=== PATIENT | female | born 1940 | race Two or more races ===

== ENCOUNTER 2025-04-09 03:16 | Inpatient (IN) | payer OTHER, SELFPAY ==
[2025-04-08] VITALS (27 sets, daily range): BP systolic 71–113; BP diastolic 47–57; BMI 22.1
[2025-04-08 19:25] LABS: Hematocrit 37.8 % (37.0-47.0); Hemoglobin 11.8 g/dL (12.0-16.0); Mean Corp Hgb Conc. 31.2 g/dL (33.0-37.0); Mean Corpuscular Volume 91.7 fL (81.0-99.0); Nucleated Red Blood Cells % 0 %; Platelet Count 223 10^3/uL (130-400); Red Cell Dist. Width 12.8 % (11.5-14.5)
[2025-04-08 19:45] LABS: Blood Urea Nitrogen 46 mg/dl (7-17); Calcium 9.5 mg/dl (8.4-10.2); Carbon Dioxide 10 mmol/L (22-30); Chloride 99 mmol/L (98-107); Estimated Creatinine Clearance 20 ml/min; Glucose 155 mg/dl (70-99); Lipase 196 U/L (23-300); Sodium 133 mmol/L (135-145); eGFR 32.00
--- NOTE | 2025-04-08 19:45 | ED.GENMED ---
History of Present Illness
<HILARIA Goyal - Last Filed: 04/09/25 08:35>
General
Chief Complaint: Change in Mental Status
Source: patient
Time Seen by Provider: 04/08/25 18:49
Nursing documentation reviewed up to this point in time: agreed with
History of Present Illness
History of Present Illness:
Patient is an 84-year-old female with history of hypertension hyperlipidemia pacemaker diabetes brought from home for change in mental status. Son at bedside. Son reports patient lives with him and last week patient had an episode of
hallucinations. Son reports patient was stating that she saw her son and . Today they noticed patient was in her room a lot and had a lot of confusion and was too weak to walk today.
Son is translating. Patient was complaining of some abdominal discomfort. Patient had an episode of stool incontinence upon arrival noted by EMS. Presently patient is awake and alert and not confused at baseline as per son. Son reports no
history of dementia.
Phy Exam
<HILARIA Goyal - Last Filed: 04/09/25 08:35>
General Physical Exam
General Presentation: no apparent distress
General age: appears stated age
General Skin: warm and dry
General Habitus: elderly
General Hydration: appears well hydrated
Cardiovascular Exam
Cardiovascular Exam: regular rate/rhythm, no murmur and normal peripheral pulses
Pulmonary Exam
Pulmonary Exam: lungs clear and no respiratory distress
Gastrointestinal Exam
Gastrointestinal Exam: soft and other (tender lower abdominal region )
Neurological Exam
Neurological Exam: alert and oriented x3
Musculoskeletal Exam
Musculoskeletal Exam: full ROM
Skin Exam
Skin Exam: normal color and warm/dry
Psychiatric Exam
Psychiatric Exam: normal mood/affect
Course
<HILARIA Goyal - Last Filed: 04/09/25 08:35>
Orders/Labs/Results
Orders:
Orders
04/08/25 18:50
Electrocardiogram (*1) Urgent
Reason for Study: Other
Other Reason for Exam: Possible Sepsis
04/08/25 18:51
EKG- Treatment ONCE
04/08/25 19:14
Basic Metabolic Panel Urgent
Complete Blood Count/With Diff Urgent
Lipase Urgent
04/08/25 19:44
Straight cath- Treatment ONCE
04/08/25 19:45
CT Head W/o Iv Contrast Urgent
Comment:
Reason For Exam: confusion
04/08/25 20:01
CMP [Comprehensive Metabolic Panel] Urgent
04/08/25 20:16
UA Reflex to Culture [Urinalysis Reflex To Culture] Urgent
Date Specimen was Collected: 04/08/25
Time Specimen was Collected: 20:15
Urine Microscopic Reflex Cult Urgent
Urine Culture Urgent
MORGAN Source: U
Specimen Description:
Date Specimen was Collected: 04/08/25
Time Specimen was Collected: 20:15
04/08/25 21:46
0.9% Sodium Chloride 1000 ml [Nss] 1,000 ml IV BOLUS
04/08/25 21:57
COVID-19 Antigen Urgent
Source: Nasal Swab
Influenza A+B Rapid Molecular Urgent
MORGAN Source: Nasal Swab
Specimen Description:
04/08/25 22:04
0.9% Sodium Chloride 500 ml [Nss] 500 ml IV BOLUS
04/08/25 22:05
CT Abd/pelvis W Iv Cont Urgent
Comment:
Reason For Exam: ABD PAIN, CONFUSION
04/08/25 22:21
Lactic Acid Q4H
Comment: CANCEL 2nd LACTIC ACID IF 1st LACTIC ACID IS LESS THAN 2
Troponin I Urgent
Blood Culture Q30M
MORGAN Source: Blood/Venous
Specimen Description:
04/08/25 23:24
Blood Culture Q30M
MORGAN Source: Blood/Venous
Specimen Description:
04/09/25 00:21
Piperacillin/Tazo 4.5 Gram [Zosyn] 4.5 gram in 100 ml IV NOW
Vancomycin [Vancocin] 1,500 mg 0.9% Sodium Chloride 500 ml [Nss] 500 ml IV NOW
04/09/25 01:00
Troponin I Urgent
04/09/25 01:11
CXR2 [CR Chest - 2 Views ] Urgent
Comment:
Reason For Exam: Sepsis
04/09/25 01:20
Electrocardiogram (*1) Urgent
Reason for Study: Chest Pain
EKG- Treatment ONCE
04/09/25 01:43
ABG [Arterial Blood Gas] Urgent
%Oxygen/Room Air: RA
B-Hydroxybutyrate Urgent
DDimer [D-Dimer] Urgent
04/09/25 02:46
Admit/Transfer Patient As Directed
Co-Sign Provider:
Level of Care: Inpatient admission
Assign to:: IMU- Intermediate Care
Physician / Group: Shawn
Diagnosis: Ketoacidosis, Sepsis / Pneumonia
Reason for Hospitalization: Ketoacidosis, Sepsis / Pneumonia
Expected length of stay greater than two midnights?: Yes
ELOS- Estimated Length of Stay in days: 4
I certify the patient meets the requirements for IP care: Yes
PRN Pain Medication Management As Directed
May give lesser potent ordered pain med per pt: Yes
preference::
Protocol:: Medication orders for pain may be administered in a
manner that supports deferring to patient preference
when the pt is:
- Requesting an ordered lesser potent pain medication.
Least to most potent pain medications are defined
as: acetaminophen < NSAID < tramadol < opioids
(morphine, oxycodone, hydromorphone).
- Requesting a lesser dose of the same medication IF
ORDERED.
- Requesting a less intrusive route of administration
if both routes are prescribed by the provider (PO <
IV).
04/09/25 02:47
Code Status As Directed
Resuscitation Status: Full Code
04/09/25 03:22
Acetaminophen [Tylenol] 650 mg PO Q4HPRN PRN
Albuterol Nebs [Ventolin Nebules] 2.5 mg INH R Q4HPRN PRN
Dextrose 50%-Water [Dextrose 50% Syringe] 12.5 grams IV [id number] PRN
Glucagon [GlucaGen] 1 mg IM PRN PRN
Heparin 3,200 units IV NOW STA
Heparin 09127 Units/250 ml 25,000 units in 250 ml IV PER PROTOCOL
Weight to be used for heparin protocol in kilograms (kg):: 53
Protocol:: Cardiac Tx/Acute Coronary
PTT Goal Range to be used:: PTT 73 to 111 seconds
Order type:: Initial
INITIAL Infusion Dose (UNITS/KG/hr) & then follow protocol:: 12 units/kg/hr
Infusion Dose in UNITS/hr & then follow protocol (UNITS/hr):: 650
INFUSION RATE in mL/hr & then follow protocol (mL/hr):: 6.5
PTT less than or equal to 64 seconds:: Increase rate by 200 units/hr (+ 2 mL/hr)
PTT 64.1 to 72.9 seconds:: Increase rate by 100 units/hr (+ 1 mL/hr)
PTT 73 to 111 seconds:: Target Range. No change in rate.
PTT 111.1 to 130.9 seconds:: Decrease rate by 100 units/hr (- 1 mL/hr)
PTT 131 to 199.9 seconds:: HOLD for 1 hr. Then decrease rate by 200 units/hr (- 2 mL/hr)
PTT greater than or equal to 200 seconds:: HOLD for 2 hrs & Notify Provider. Then decrease by 200 units/hr (-
2 mL/hr)
Lab follow-up:: Each change, PTT q6h until 2 consecutive are therapeutic. Then PTT
daily.
VANCOMYCIN Pharmacy to Dose [VANCOCIN Pharmacy to Dose] 1 each Pharmacy To Prepare [Call Pharmacy To Prepare] 0 ml IV PER PROTOCOL
04/09/25 03:22
CARDIOLOGY CONSULT Routine
Consulting Provider: Alonso Mart
Was physician already notified: No
Reason for consult: Abnormal Trop, Acidosis
Consult Notification Routine
Specialty to Notify: Cardiology
Date consulting provider notified: 04/10/25
Time consulting provider notified: 08:14
Notified:: Provider
Heparin Protocol- PTT Orders As Directed
PTT per Heparin protocol: -Obtain CBC and baseline PTT - if not already collected.
-Obtain PTT 6 hours from start of infusion. Then, every 6 hours until 2 consecutive
PTT's are therapeutic. Then, PTT Daily.
-With each rate change, obtain PTT every 6 hours until 2 consecutive PTT's are
therapeutic. Then, PTT Daily.
Activity As Directed
Activity Level: Ambulate
With Assistance
Bedside Glucose Monitoring As Directed
Frequency: AC&HS
Additional Instructions:: Change to q6h if pt on TPN, tube feeding or not eating
Bladder Scan As Directed
Follow Bladder Retention/Intermittent Cath Algorithm?: Yes
PRN if no void in __ hours: 6
Frequency: Per Retention Algorithm
If Bladder Scan Result >: 400
then:: Straight cath
EKG with chest pain [ECG as needed] As Directed
ECG as needed for:: Chest Pain
I/O [Intake/ Output] As Directed
Frequency: Per unit guidelines
Neurological Checks As Directed
Frequency: q4h
Notify MD As Directed
Notify physician if: PTT is greater than or equal to 200.
Straight Cath As Directed
Frequency: Per Retention Algorithm
Additional Instructions: straight cath as needed per acute urinary retention algorithm for 24 hrs
Additional Instructions: for bladder scan greater than 400 mL
Vital Signs As Directed
Frequency: Per unit guidelines
Weight As Directed
Frequency: Daily
Oxygen Therapy [O2 Therapy] [RESP] Routine
Titrate/Wean O2 to maintain O2 sat greater than (%): 94
04/09/25 04:00
Sterile Water For Inj [Sterile Water For Injection 1000 ml] 1,000 ml Sodium Bicarbonate 150 meq IV 100 mls/hr
04/09/25 04:06
Complete Blood Count/No Diff Urgent
Comment: Obtain baseline before beginning heparin infusion if not already collected
PTT Urgent
Comment: Obtain baseline before beginning heparin infusion if not already collected
TSH Reflex To Free T4 Routine
Troponin I Q6H
04/09/25 05:50
Cardiovascular Evaluation IN AM
Glycohemoglobin (HgbA1c) IN AM
Magnesium IN AM
Phosphorus IN AM
04/09/25 Breakfast
NPO
Allow oral meds: Yes
Allow clear liquids: Sips of Clears
Piperacillin/Tazo 2.25 Gram [Zosyn] 2.25 grams in 50 ml IV Q6H
04/09/25 07:30
Insulin Aspart Corrective Low [Novolog Flexpen-Low Resistance] See Protocol SC AC
04/09/25 08:00
Aspirin Chewable [Low Strength Aspirin] 81 mg PO DAILY
Pantoprazole [Protonix] 40 mg PO DAILY
04/09/25 09:31
Troponin I Q6H
04/09/25 15:21
Troponin I Q6H
04/11/25 06:00
Complete Blood Count/No Diff Q2D
Comment: Notify if platelet count is <130,000 or decreases by 50% from baseline
04/13/25 06:00
Complete Blood Count/No Diff Q2D
Comment: Notify MD if platelet count is <130,000 or decreases by 50% from baseline
04/15/25 06:00
Complete Blood Count/No Diff Q2D
Comment: Notify MD if platelet count is <130,000 or decreases by 50% from baseline
04/17/25 06:00
Complete Blood Count/No Diff Q2D
Comment: Notify MD if platelet count is <130,000 or decreases by 50% from baseline
04/19/25 06:00
Complete Blood Count/No Diff Q2D
Comment: Notify MD if platelet count is <130,000 or decreases by 50% from baseline
04/21/25 06:00
Complete Blood Count/No Diff Q2D
Comment: Notify MD if platelet count is <130,000 or decreases by 50% from baseline
04/23/25 06:00
Complete Blood Count/No Diff Q2D
Comment: Notify MD if platelet count is <130,000 or decreases by 50% from baseline
04/25/25 06:00
Complete Blood Count/No Diff Q2D
Comment: Notify MD if platelet count is <130,000 or decreases by 50% from baseline
Abnormal Lab Results
04/08/25 04/08/25 04/08/25
19:14 20:01 20:16
WBC 14.0 H 10^3/uL
(4.8-10.8)
RBC 4.12 L 10^6/uL
(4.20-5.40)
Hgb 11.8 L g/dL
(12.0-16.0)
MCHC 31.2 L g/dL
(33.0-37.0)
Abs Immat Gran (auto) 0.1 H 10^3/uL
(0-0.05)
Absolute Neuts (auto) 11.9 H 10^3/uL
(1.4-6.5)
Absolute Lymphs (auto) 1.1 L 10^3/uL
(1.2-3.4)
Absolute Monos (auto) 0.9 H 10^3/uL
(0.1-0.6)
Neutrophils % 85.3 H %
(42.2-75.2)
Lymphocytes % 7.5 L %
(20.5-51.1)
D-Dimer
pH
pCO2
pO2
HCO3
ABG O2 Sat (Measured)
Sodium 133 L mmol/L 132 L mmol/L
(135-145) (135-145)
Carbon Dioxide 10 L* mmol/L 10 L* mmol/L
(22-30) (22-30)
BUN 46 H mg/dl 46 H mg/dl
(7-17) (7-17)
Creatinine 1.6 H mg/dL 1.6 H mg/dL
(0.6-1.0) (0.6-1.0)
Glucose 155 H mg/dl 202 H mg/dl
(70-99) (70-99)
AST 37 H U/L
(14-36)
Troponin I
Urine Ketones 3+ A
(Negative)
Ur Occult Blood Reflex 4+ A
(Negative)
Urine RBC 11-15 A /HPF
(0-2)
Urine Bacteria (Reflex) Many A
(Negative)
Urine Albumin (Reflex) 3+ A
(Neg - Trace)
B-Hydroxybutyrate
POC Glucose
04/08/25 04/09/25 04/09/25
22:21 01:00 01:43
WBC
RBC
Hgb
MCHC
Abs Immat Gran (auto)
Absolute Neuts (auto)
Absolute Lymphs (auto)
Absolute Monos (auto)
Neutrophils %
Lymphocytes %
D-Dimer 2.00 H ug/mlFEU
(0.00-0.50)
pH 7.33 L
(7.35-7.45)
pCO2 28 L mmHg
(32-35)
pO2 52 L* mmHg
(83-108)
HCO3 14.8 L* mmol/L
(21-28)
ABG O2 Sat (Measured) 83.8 L %
(94-98)
Sodium
Carbon Dioxide
BUN
Creatinine
Glucose
AST
Troponin I 0.240 H* ng/ml 0.283 H* ng/ml
Urine Ketones
Ur Occult Blood Reflex
Urine RBC
Urine Bacteria (Reflex)
Urine Albumin (Reflex)
B-Hydroxybutyrate 3.14 H mmol/L
(0.02-0.27)
POC Glucose
04/09/25
02:15
WBC
RBC
Hgb
MCHC
Abs Immat Gran (auto)
Absolute Neuts (auto)
Absolute Lymphs (auto)
Absolute Monos (auto)
Neutrophils %
Lymphocytes %
D-Dimer
pH
pCO2
pO2
HCO3
ABG O2 Sat (Measured)
Sodium
Carbon Dioxide
BUN
Creatinine
Glucose
AST
Troponin I
Urine Ketones
Ur Occult Blood Reflex
Urine RBC
Urine Bacteria (Reflex)
Urine Albumin (Reflex)
B-Hydroxybutyrate
POC Glucose 175 H mg/dl
(70-99)
04/08/25 19:14
04/08/25 20:01
Vital Signs
Initial and Last Documented VS:
Initial Vital Signs
Pulse Resp Pulse Ox
86 23 100
04/08/25 18:50 04/08/25 18:50 04/08/25 18:50
Last Documented Vital Signs
Temp Pulse Resp BP Pulse Ox
98.4 F 98 23 129/72 97
04/10/25 07:55 04/10/25 11:11 04/10/25 11:11 04/10/25 10:00 04/10/25 11:15
[employer] consulted with Physician
[employer] consulted with physician?: Yes
Name of Physician Consulted: jt
<Edith Howard PA-C - Last Filed: 04/09/25 02:48>
Orders/Labs/Results
Orders:
Orders
04/08/25 18:50
Electrocardiogram (*1) Urgent
Reason for Study: Other
Other Reason for Exam: Possible Sepsis
04/08/25 18:51
EKG- Treatment ONCE
04/08/25 19:14
Basic Metabolic Panel Urgent
Complete Blood Count/With Diff Urgent
Lipase Urgent
04/08/25 19:44
Straight cath- Treatment ONCE
04/08/25 19:45
CT Head W/o Iv Contrast Urgent
Comment:
Reason For Exam: confusion
04/08/25 20:01
CMP [Comprehensive Metabolic Panel] Urgent
04/08/25 20:16
UA Reflex to Culture [Urinalysis Reflex To Culture] Urgent
Date Specimen was Collected: 04/08/25
Time Specimen was Collected: 20:15
Urine Microscopic Reflex Cult Urgent
Urine Culture Urgent
MORGAN Source: U
Specimen Description:
Date Specimen was Collected: 04/08/25
Time Specimen was Collected: 20:15
04/08/25 21:46
0.9% Sodium Chloride 1000 ml [Nss] 1,000 ml IV BOLUS
04/08/25 21:57
COVID-19 Antigen Urgent
Source: Nasal Swab
Influenza A+B Rapid Molecular Urgent
MORGAN Source: Nasal Swab
Specimen Description:
04/08/25 22:04
0.9% Sodium Chloride 500 ml [Nss] 500 ml IV BOLUS
04/08/25 22:05
CT Abd/pelvis W Iv Cont Urgent
Comment:
Reason For Exam: ABD PAIN, CONFUSION
04/08/25 22:21
Lactic Acid Q4H
Comment: CANCEL 2nd LACTIC ACID IF 1st LACTIC ACID IS LESS THAN 2
Troponin I Urgent
Blood Culture Q30M
MORGAN Source: Blood/Venous
Specimen Description:
04/08/25 23:24
Blood Culture Q30M
MORGAN Source: Blood/Venous
Specimen Description:
04/09/25 00:21
Piperacillin/Tazo 4.5 Gram [Zosyn] 4.5 gram in 100 ml IV NOW
Vancomycin [Vancocin] 1,500 mg 0.9% Sodium Chloride 500 ml [Nss] 500 ml IV NOW
04/09/25 01:00
Troponin I Urgent
04/09/25 01:11
CXR2 [CR Chest - 2 Views ] Urgent
Comment:
Reason For Exam: Sepsis
04/09/25 01:20
Electrocardiogram (*1) Urgent
Reason for Study: Chest Pain
EKG- Treatment ONCE
04/09/25 01:43
ABG [Arterial Blood Gas] Urgent
%Oxygen/Room Air: RA
B-Hydroxybutyrate Urgent
DDimer [D-Dimer] Urgent
04/09/25 02:46
Admit/Transfer Patient As Directed
Co-Sign Provider:
Level of Care: Inpatient admission
Assign to:: IMU- Intermediate Care
Physician / Group: Shawn
Diagnosis: Ketoacidosis, Sepsis / Pneumonia
Reason for Hospitalization: Ketoacidosis, Sepsis / Pneumonia
Expected length of stay greater than two midnights?: Yes
ELOS- Estimated Length of Stay in days: 4
I certify the patient meets the requirements for IP care: Yes
PRN Pain Medication Management As Directed
May give lesser potent ordered pain med per pt: Yes
preference::
Protocol:: Medication orders for pain may be administered in a
manner that supports deferring to patient preference
when the pt is:
- Requesting an ordered lesser potent pain medication.
Least to most potent pain medications are defined
as: acetaminophen < NSAID < tramadol < opioids
(morphine, oxycodone, hydromorphone).
- Requesting a lesser dose of the same medication IF
ORDERED.
- Requesting a less intrusive route of administration
if both routes are prescribed by the provider (PO <
IV).
04/09/25 02:47
Code Status As Directed
Resuscitation Status: Full Code
04/09/25 03:22
Acetaminophen [Tylenol] 650 mg PO Q4HPRN PRN
Albuterol Nebs [Ventolin Nebules] 2.5 mg INH R Q4HPRN PRN
Dextrose 50%-Water [Dextrose 50% Syringe] 12.5 grams IV [id number] PRN
Glucagon [GlucaGen] 1 mg IM PRN PRN
Heparin 3,200 units IV NOW STA
Heparin 35863 Units/250 ml 25,000 units in 250 ml IV PER PROTOCOL
Weight to be used for heparin protocol in kilograms (kg):: 53
Protocol:: Cardiac Tx/Acute Coronary
PTT Goal Range to be used:: PTT 73 to 111 seconds
Order type:: Initial
INITIAL Infusion Dose (UNITS/KG/hr) & then follow protocol:: 12 units/kg/hr
Infusion Dose in UNITS/hr & then follow protocol (UNITS/hr):: 650
INFUSION RATE in mL/hr & then follow protocol (mL/hr):: 6.5
PTT less than or equal to 64 seconds:: Increase rate by 200 units/hr (+ 2 mL/hr)
PTT 64.1 to 72.9 seconds:: Increase rate by 100 units/hr (+ 1 mL/hr)
PTT 73 to 111 seconds:: Target Range. No change in rate.
PTT 111.1 to 130.9 seconds:: Decrease rate by 100 units/hr (- 1 mL/hr)
PTT 131 to 199.9 seconds:: HOLD for 1 hr. Then decrease rate by 200 units/hr (- 2 mL/hr)
PTT greater than or equal to 200 seconds:: HOLD for 2 hrs & Notify Provider. Then decrease by 200 units/hr (-
2 mL/hr)
Lab follow-up:: Each change, PTT q6h until 2 consecutive are therapeutic. Then PTT
daily.
VANCOMYCIN Pharmacy to Dose [VANCOCIN Pharmacy to Dose] 1 each Pharmacy To Prepare [Call Pharmacy To Prepare] 0 ml IV PER PROTOCOL
04/09/25 03:22
CARDIOLOGY CONSULT Routine
Consulting Provider: Alonso Mart
Was physician already notified: No
Reason for consult: Abnormal Trop, Acidosis
Consult Notification Routine
Specialty to Notify: Cardiology
Date consulting provider notified: 04/10/25
Time consulting provider notified: 08:14
Notified:: Provider
Heparin Protocol- PTT Orders As Directed
PTT per Heparin protocol: -Obtain CBC and baseline PTT - if not already collected.
-Obtain PTT 6 hours from start of infusion. Then, every 6 hours until 2 consecutive
PTT's are therapeutic. Then, PTT Daily.
-With each rate change, obtain PTT every 6 hours until 2 consecutive PTT's are
therapeutic. Then, PTT Daily.
Activity As Directed
Activity Level: Ambulate
With Assistance
Bedside Glucose Monitoring As Directed
Frequency: AC&HS
Additional Instructions:: Change to q6h if pt on TPN, tube feeding or not eating
Bladder Scan As Directed
Follow Bladder Retention/Intermittent Cath Algorithm?: Yes
PRN if no void in __ hours: 6
Frequency: Per Retention Algorithm
If Bladder Scan Result >: 400
then:: Straight cath
EKG with chest pain [ECG as needed] As Directed
ECG as needed for:: Chest Pain
I/O [Intake/ Output] As Directed
Frequency: Per unit guidelines
Neurological Checks As Directed
Frequency: q4h
Notify MD As Directed
Notify physician if: PTT is greater than or equal to 200.
Straight Cath As Directed
Frequency: Per Retention Algorithm
Additional Instructions: straight cath as needed per acute urinary retention algorithm for 24 hrs
Additional Instructions: for bladder scan greater than 400 mL
Vital Signs As Directed
Frequency: Per unit guidelines
Weight As Directed
Frequency: Daily
Oxygen Therapy [O2 Therapy] [RESP] Routine
Titrate/Wean O2 to maintain O2 sat greater than (%): 94
04/09/25 04:00
Sterile Water For Inj [Sterile Water For Injection 1000 ml] 1,000 ml Sodium Bicarbonate 150 meq IV 100 mls/hr
04/09/25 04:06
Complete Blood Count/No Diff Urgent
Comment: Obtain baseline before beginning heparin infusion if not already collected
PTT Urgent
Comment: Obtain baseline before beginning heparin infusion if not already collected
TSH Reflex To Free T4 Routine
Troponin I Q6H
04/09/25 05:50
Cardiovascular Evaluation IN AM
Glycohemoglobin (HgbA1c) IN AM
Magnesium IN AM
Phosphorus IN AM
04/09/25 Breakfast
NPO
Allow oral meds: Yes
Allow clear liquids: Sips of Clears
Piperacillin/Tazo 2.25 Gram [Zosyn] 2.25 grams in 50 ml IV Q6H
04/09/25 07:30
Insulin Aspart Corrective Low [Novolog Flexpen-Low Resistance] See Protocol SC AC
04/09/25 08:00
Aspirin Chewable [Low Strength Aspirin] 81 mg PO DAILY
Pantoprazole [Protonix] 40 mg PO DAILY
04/09/25 09:31
Troponin I Q6H
04/09/25 15:21
Troponin I Q6H
04/11/25 06:00
Complete Blood Count/No Diff Q2D
Comment: Notify MD if platelet count is <130,000 or decreases by 50% from baseline
04/13/25 06:00
Complete Blood Count/No Diff Q2D
Comment: Notify MD if platelet count is <130,000 or decreases by 50% from baseline
04/15/25 06:00
Complete Blood Count/No Diff Q2D
Comment: Notify MD if platelet count is <130,000 or decreases by 50% from baseline
04/17/25 06:00
Complete Blood Count/No Diff Q2D
Comment: Notify MD if platelet count is <130,000 or decreases by 50% from baseline
04/19/25 06:00
Complete Blood Count/No Diff Q2D
Comment: Notify MD if platelet count is <130,000 or decreases by 50% from baseline
04/21/25 06:00
Complete Blood Count/No Diff Q2D
Comment: Notify MD if platelet count is <130,000 or decreases by 50% from baseline
04/23/25 06:00
Complete Blood Count/No Diff Q2D
Comment: Notify if platelet count is <130,000 or decreases by 50% from baseline
04/25/25 06:00
Complete Blood Count/No Diff Q2D
Comment: Notify if platelet count is <130,000 or decreases by 50% from baseline
Abnormal Lab Results
04/08/25 04/08/25 04/08/25
19:14 20:01 20:16
WBC 14.0 H 10^3/uL
(4.8-10.8)
RBC 4.12 L 10^6/uL
(4.20-5.40)
Hgb 11.8 L g/dL
(12.0-16.0)
MCHC 31.2 L g/dL
(33.0-37.0)
Abs Immat Gran (auto) 0.1 H 10^3/uL
(0-0.05)
Absolute Neuts (auto) 11.9 H 10^3/uL
(1.4-6.5)
Absolute Lymphs (auto) 1.1 L 10^3/uL
(1.2-3.4)
Absolute Monos (auto) 0.9 H 10^3/uL
(0.1-0.6)
Neutrophils % 85.3 H %
(42.2-75.2)
Lymphocytes % 7.5 L %
(20.5-51.1)
D-Dimer
pH
pCO2
pO2
HCO3
ABG O2 Sat (Measured)
Sodium 133 L mmol/L 132 L mmol/L
(135-145) (135-145)
Carbon Dioxide 10 L* mmol/L 10 L* mmol/L
(22-30) (22-30)
BUN 46 H mg/dl 46 H mg/dl
(7-17) (7-17)
Creatinine 1.6 H mg/dL 1.6 H mg/dL
(0.6-1.0) (0.6-1.0)
Glucose 155 H mg/dl 202 H mg/dl
(70-99) (70-99)
AST 37 H U/L
(14-36)
Troponin I
Urine Ketones 3+ A
(Negative)
Ur Occult Blood Reflex 4+ A
(Negative)
Urine RBC 11-15 A /HPF
(0-2)
Urine Bacteria (Reflex) Many A
(Negative)
Urine Albumin (Reflex) 3+ A
(Neg - Trace)
B-Hydroxybutyrate
POC Glucose
04/08/25 04/09/25 04/09/25
22:21 01:00 01:43
WBC
RBC
Hgb
MCHC
Abs Immat Gran (auto)
Absolute Neuts (auto)
Absolute Lymphs (auto)
Absolute Monos (auto)
Neutrophils %
Lymphocytes %
D-Dimer 2.00 H ug/mlFEU
(0.00-0.50)
pH 7.33 L
(7.35-7.45)
pCO2 28 L mmHg
(32-35)
pO2 52 L* mmHg
(83-108)
HCO3 14.8 L* mmol/L
(21-28)
ABG O2 Sat (Measured) 83.8 L %
(94-98)
Sodium
Carbon Dioxide
BUN
Creatinine
Glucose
AST
Troponin I 0.240 H* ng/ml 0.283 H* ng/ml
Urine Ketones
Ur Occult Blood Reflex
Urine RBC
Urine Bacteria (Reflex)
Urine Albumin (Reflex)
B-Hydroxybutyrate 3.14 H mmol/L
(0.02-0.27)
POC Glucose
04/09/25
02:15
WBC
RBC
Hgb
MCHC
Abs Immat Gran (auto)
Absolute Neuts (auto)
Absolute Lymphs (auto)
Absolute Monos (auto)
Neutrophils %
Lymphocytes %
D-Dimer
pH
pCO2
pO2
HCO3
ABG O2 Sat (Measured)
Sodium
Carbon Dioxide
BUN
Creatinine
Glucose
AST
Troponin I
Urine Ketones
Ur Occult Blood Reflex
Urine RBC
Urine Bacteria (Reflex)
Urine Albumin (Reflex)
B-Hydroxybutyrate
POC Glucose 175 H mg/dl
(70-99)
04/08/25 19:14
04/08/25 20:01
Vital Signs
Initial and Last Documented VS:
Initial Vital Signs
Pulse Resp Pulse Ox
86 23 100
04/08/25 18:50 04/08/25 18:50 04/08/25 18:50
Last Documented Vital Signs
Temp Pulse Resp BP Pulse Ox
98.4 F 98 23 129/72 97
04/10/25 07:55 04/10/25 11:11 04/10/25 11:11 04/10/25 10:00 04/10/25 11:15
<HILARIA Goyal - Last Filed: 04/09/25 08:35>
MDM/Problems Addressed
Differential Diagnosis Includes:
Not limited to sepsis UTI colitis diverticulitis mesenteric ischemia
MDM/Problems Addressed:
As documented patient is an 84 -year-old female who normally is awake and alert brought by son. Son reports patient has had confusion intermittently since last week. She was hallucinating last week and found to be more confused today with
weakness. Patient did complain of some mild lower abdominal pain on arrival. Patient presents awake alert she is afebrile here blood pressure in the 80s white count mildly elevated at 14,000. She is acidotic with a bicarb of 10 her BUN is 46 her
creatinine is 1.6. Patient's potassium is normal 4.9 her glucose is mildly elevated 202 urinalysis shows 0-2 white blood cells 11�15 RBCs. Questionable minimal suprapubic tenderness.
Her EKG shows a left bundle ; she denies any chest pain no prior EKG for comparison will add on a cardiac troponin
case reviewed with ED physician
Case transfered to DEANDRE Donohue
Chronic conditions affecting care:
htn, DM:
<HILARIA Goyal - Last Filed: 04/09/25 08:35>
*Radiology
Radiology exam reviewed: radiology read reviewed
*Pulse Oximetry
SaO2: 100
Oxygen Mode of Delivery: Room air
Patient hypoxic: no
<Edith Howard PA-C - Last Filed: 04/09/25 02:48>
*Critical Care Note
Total Time (30-74mins, 75-104mins- exclusive of procedures): Not Applicable
<Edith Howard PA-C - Last Filed: 04/09/25 02:48>
Update Note
Update Note:
Update: Assumed care of patient pending CT imaging. Head CT without acute abnormalities. CT scan abdomen/pelvis reveals urinary bladder wall thickening suspicious for possible cystitis as well as evidence of mild colitis. Ultimately�patient has
soft BP in emergency department. Her labs are significant for a leukocytosis with left shift as well as significant anion gap acidosis and renal insufficiency. Troponin elevated to 0.240. Patient does have a left bundle branch block on EKG
without any prior EKGs for comparison. Of note�patient has had no chest pain or shortness of breath.
UA without any convincing evidence of acute infection.
Differential broad however at this point favor sepsis of unknown origin given persistent hypotension, leukocytosis with left shift. Suspect troponin elevation likely secondary to demand ischemia. Low suspicion for ACS however will continue to
trend troponin. She has received the sepsis bolus of fluid however BP remains borderline. Currently, MAP is > 65 will continue to monitor very closely and start vasopressors if needed. Patient given broad-spectrum antibiotics vancomycin/Zosyn in
ED. Patient accepted to hospital service in stable condition.
Patient was seen in conjunction with attending physician.
ED Attending Note
<HILARIA Goyal - Last Filed: 04/09/25 08:35>
-
Portions of this chart may have been created with voice recognition software.� Occasional wrong word or��sound alike� substitutions may have occurred due to the inherent limitations of voice recognition software.
Discharge Plan
Departure
Patient Disposition: Admit
Date of Disposition: 04/09/25
Time of Disposition: 00:24
Presentation/result/management discussed w/ accepting MD/DO: Hospitalist
Discharge Problem:
Sepsis, Troponin level elevated, Change in mental status, Renal insufficiency
Interventions
Interventions:
*General Assessment Last Done: 04/08/25 18:52
*Neglect/Abuse Screening Last Done: 04/08/25 18:52
*ED COVID-19 Vaccine History Last Done: 04/08/25 18:52
*ED Influenza Vaccine History Last Done: 04/08/25 18:52
[facility] Fall Risk Assessment Tool Last Done: 04/09/25 06:49
*Risk Screen - Suicide (C-SSRS) Last Done: 04/09/25 20:55
*Nursing Disposition Last Done: 04/09/25 20:59
ED- Pulmonary Assessment Last Done: 04/08/25 21:26
ED-Psychological Assessment Last Done: 04/09/25 20:55
ED- Neurological Assessment Last Done: 04/08/25 21:26
ED- Cardiac Assessment Last Done: 04/08/25 21:26
ED Swallowing Screen Last Done: 04/08/25 22:06
Discharge Date and Time
Discharge Date/Time: 04/09/25 21:00
[2025-04-08 20:27] LABS: Urine Character Clear (Clear)
[2025-04-08 20:34] LABS: Urine White Cell 0-2 /HPF (0-5)
[2025-04-08 20:38] LABS: ALT (SGPT) 18 U/L (0-35); AST (SGOT) 37 U/L (14-36); Albumin 4.6 g/dl (3.5-5.0); Alkaline Phosphatase 81 U/L (38-126); Blood Urea Nitrogen 46 mg/dl (7-17); Calcium 9.3 mg/dl (8.4-10.2); Carbon Dioxide 10 mmol/L (22-30); Chloride 98 mmol/L (98-107); Estimated Creatinine Clearance 20 ml/min; Glucose 202 mg/dl (70-99); Potassium 4.9 mmol/L (3.5-5.1); Sodium 132 mmol/L (135-145); Total Protein 7.5 g/dl (6.3-8.2); eGFR 32.00
[2025-04-08] MEDS: NSS 1000 IV (21:52)
[2025-04-08 22:19] LABS: COVID-19 Antigen Negative (Negative)
[2025-04-08] MEDS: NSS 500 IV (22:27)
[2025-04-08 23:35] LABS: Troponin I 0.240 ng/ml
[2025-04-09] VITALS (31 sets, daily range): BP systolic 81–144; BP diastolic 46–71; BMI 22.5
[2025-04-09] MEDS: ZOSYN 100 IV (00:45)
[2025-04-09 01:49] LABS: Troponin I 0.283 ng/ml
[2025-04-09] MEDS: VANCOCIN 530 MG IV (01:50)
[2025-04-09 02:00] LABS: B.E. -9.8 mmol/L; O2 Saturation % 83.8 % (94-98); PCO2 28 mmHg (32-35)
[2025-04-09 02:11] LABS: HCO3 14.8 mmol/L (21-28); PO2 52 mmHg (83-108)
[2025-04-09 03:31] LABS: D-Dimer 2.00 ug/mlFEU (0.00-0.50)
[2025-04-09 04:41] LABS: APTT 30.9 Sec (23.4-35.0)
[2025-04-09 04:49] LABS: Troponin I 0.556 ng/ml
[2025-04-09] MEDS: HEPARIN 3200 UNITS IV (04:53)
[2025-04-09] MEDS: HEPARIN 25000 UNITS/250 ML IV (04:56)
[2025-04-09] MEDS: ZOSYN 50 IV ×4 (05:01→23:29)
--- NOTE | 2025-04-09 05:39 | HPS.HSE ---
Family Physician
-
Family Physician: * NONE
Chief Complaint
-
Confusion, weakness.
History of Present Illness
Patient is an 84y F with PMH significant for symptomatic bradycardia, hypertension and DM-II who presents to ED for evaluation of confusion and weakness. History obtained primarily from son via phone and ED staff. Son states that patient has
been having audio and visual hallucinations over the past week. Specifically, seeing / hearing family members which has made her frightened. She has had intermittent episodes of confusion in that same time period. Today she stayed in her
bed for most of the day. Very little to eat / drink. Son returned home from work and patient again seemed confused / not recognizing family members. Son encourage her to check her sugar level and that was normal (89).
Son notes that he attempted to help her to the bathroom and she was completely unable to stand / walk unassisted. Her essentially carried her to the bathroom.
911 was called and patient brought to the ED for further evaluation.
Son states that he has had a cough recently. No other known sick contacts.
Patient herself has not been noted to exhibit any coughing, N/V/D.
Son reports that she complained of abdominal pain today and has intermittently complained of chest pain.
In the ED, patient is somewhat agitated when disturbed. She denies any complaints when asked. She speaks some Micronesian and answers Y/N questions at times.
Even with parking ramp attendant support via language line patient does not participate in detailed history, ROS, etc.
She denies any chest pain, abdominal pain or really any symptoms when directly asked.
Medical History
Past Medical History
Past Medical History: Reports Other
Additional Past Medical History:
Hypertension
DM-II
Symptomatic Bradycardia
GERD
Past Surgical History: Reports Other
Additional Past Surgical History:
PPM Placement
Social History
Tobacco: Non-smoker
Alcohol: Occasional
Drug: None
Living: With Family
Family History
Family History: Not pertinent
Allergies / Home Medications
Allergies reflects when Allergies were last updated in [email or web address].
Home Medications with original date entered in [email or web address]
Allergy/Medication List:
Allergies
Allergy/AdvReac Type Severity Reaction Status Date / Time
No Known Allergies Allergy Unverified 04/08/25 18:49
Home Medications
alendronate 70 mg tablet (Fosamax) 70 mg PO SA 04/08/25
amlodipine 10 mg tablet 10 mg PO DAILY Blood Pressure 04/08/25
glipizide 10 mg tablet, extended release 24 hr 10 mg PO DAILY Diabetes 04/08/25
lisinopril 20 mg tablet 20 mg PO DAILY Blood Pressure 04/08/25
metformin 850 mg tablet 850 mg PO BID marylin 04/08/25
pantoprazole 40 mg tablet,delayed release (Protonix) 40 mg PO DAILY Gastrointestinal Issue 04/08/25
simvastatin 40 mg tablet (Zocor) 40 mg PO DAILY High Cholesterol 04/08/25
Review of Systems
-
History Source: Patient (Limited ROS from patient due to poor cooperation.) and Family
Constitutional: Reports Fatigue
Respiratory: Denies Cough or Trouble Breathing
Cardiac: Reports Chest Pain; Denies Palpitations
Abdomen/GI: Reports Abdominal Pain; Denies Nausea, Vomiting or Diarrhea
: Denies Dysuria or Frequency
Musculoskeletal: Denies Joint Pain or Edema
Neurological: Reports Weakness; Denies Dizzy or Headache
Psych: Reports Audio or Visual Hallucinations
Physical Exam
Vital Signs
Vital Signs
Temp Pulse Resp BP Pulse Ox
97.9 F 77 17 96/47 96
04/08/25 18:52 04/09/25 04:15 04/09/25 04:15 04/09/25 04:00 04/09/25 04:15
Physical Exam
General: Other (84y F resting comfortably when not disturbed. Somewhat agitated when examined / disturbed.)
HEENT: Other (Dry MM. Neck supple.)
Respiratory: Other (Decreased at bases due to poor effort. No noted W/R/R.)
Cardiac: S1/S2 and Regular Rhythm
GI: Other (Unclear if patient has tenderness or just agitation from performance of exam. No evident, focal tenderness appreciated.)
Musculoskeletal: No Clubbing, No Cyanosis and No Edema
Neuro: Awake, Alert and Nonfocal/grossly intact
Laboratory Results
-
Laboratory Results
APTT 30.9 Sec (23.4-35.0) 04/09/25 04:06
pH 7.33 (7.35-7.45) L 04/09/25 01:43
pCO2 28 mmHg (32-35) L 04/09/25 01:43
pO2 52 mmHg (83-108) L* 04/09/25 01:43
HCO3 14.8 mmol/L (21-28) L* 04/09/25 01:43
Lactic Acid Cancelled 04/09/25 02:15
Total Bilirubin 1.0 mg/dl (0.2-1.3) 04/08/25 20:01
AST 37 U/L (14-36) H 04/08/25 20:01
ALT 18 U/L (0-35) 04/08/25 20:01
Alkaline Phosphatase 81 U/L (38-126) 04/08/25 20:01
Troponin I 0.556 ng/ml H* D 04/09/25 04:06
Lipase 196 U/L (23-300) 04/08/25 19:14
Impression/Plan
-
A/P: Patient is an 84y F with PMH significant for HTN and DM-II who presents to ED for evaluation of one week of increased confusion / hallucinations and now weakness this evening.
Hypotension
Anion Gap Metabolic Acidosis / Ketosis
- Admit for further evaluation and treatment.
- Etiology of presentation at this time remains unclear.
- ? L base opacity noted on CXR - though no report of respiratory symptoms (son at home has a cough).
- CT A/P with perhaps mild wall thickening of bladder (UA not suggestive of infection) and colon (no noted diarrhea, etc).
- Leukocytosis with L shift, but afebrile.
- EKG shows LBBB with no prior tracing for comparison. Initial troponin elevated at 0.240.
- Patient denies chest pain at present - but reportedly has complained of intermittent chest pain per son.
- Continue IVF support with supplemental bicarbonate for now.
- Continue broad spectrum abx coverage for possible sepsis pending culture data, formal imaging results, etc.
- Follow temperature curve and monitor for any new / focal symptoms.
- IV heparin infusion with EKG changes, abnormal trop and abnormal D-Dimer.
- Defer CTA chest for now as not hypoxemic and already had CT with IV contrast done this evening.
- Check Echo given hypotension.
- Cardiology evaluation for additional recommendations.
- Follow labs / lytes for improvement and adjust IVFs as needed.
NKECHI
- SCr = 1.6 with no prior values here for comparison.
- Suspect NKECHI secondary to above.
- Hold lisinopril / metformin.
- Follow for improvement in renal function with IVFs / resuscitation.
Benign Hypertension
- Currently hypotensive. Hold all antihypertensive medications acutely.
DM-II
- Stable. Glucose 89 at home this evening.
- Hold PO hypoglycemic agents acutely.
- Follow glucose and cover with SSI as needed.
- Update A1C.
Hallucinations
- History seems most c/w new recognition / onset of dementia - though son indicates that change was rather abrupt.
- Patient somewhat agitated at times in the ED this evening when disturbed.
- Follow for any improvement in mental status / hallucinations / etc with correction of metabolic disturbances, etc as noted above.
DVT Prophylaxis: On IV Heparin infusion.
Code Status: Full
[2025-04-09] MEDS: SODIUM BICARBONATE 1150 MEQ IV ×2 (05:51→20:23)
[2025-04-09 06:06] LABS: Hematocrit 27.8 % (37.0-47.0); Hemoglobin 9.3 g/dL (12.0-16.0); Mean Corp Hgb Conc. 33.5 g/dL (33.0-37.0); Mean Corpuscular Volume 89.1 fL (81.0-99.0); Platelet Count 159 10^3/uL (130-400); Red Cell Dist. Width 12.8 % (11.5-14.5)
[2025-04-09 07:10] LABS: ALT (SGPT) 16 U/L (0-35); AST (SGOT) 39 U/L (14-36); Albumin 3.4 g/dl (3.5-5.0); Alkaline Phosphatase 55 U/L (38-126); Blood Urea Nitrogen 40 mg/dl (7-17); Calcium 8.2 mg/dl (8.4-10.2); Carbon Dioxide 15 mmol/L (22-30); Chloride 111 mmol/L (98-107); Estimated Creatinine Clearance 30 ml/min; Glucose 137 mg/dl (70-99); HDL Cholesterol 62 mg/dl; LDL Cholesterol, Calculated 47 mg/dl; Magnesium 1.7 mg/dl (1.6-2.3); Potassium 4.4 mmol/L (3.5-5.1); Sodium 136 mmol/L (135-145); Total Protein 6.2 g/dl (6.3-8.2); Very Low Density Lipoprotein 9 mg/dl (0-30); eGFR 50.17
[2025-04-09] MEDS: ZOSYN IV (07:33)
[2025-04-09 07:53] LABS: Glucose - Point of Care 175 mg/dl (70-99)
--- NOTE | 2025-04-09 08:05 | PTCARENOTE ---
Upon entering room to introducing myself and engage with pt to obtain vitals and get a initial assessment, this Rn was quickly met with resistance from pt resulting pt ultimately removing all monitors leads, blood pressure cuff and pulse ox. This
Rn used pc network technician Sobeida Del Rosario #[id number] to help facilitate care and inform the pt of what is happening and what the plan of care is. pt remained silent with eyes closed, no interaction. when left alone pt is content. when engaging to deliver care pt is
combative and hostile despite redirecting measures and pc network technician use. pts contact called listed in the chart; call sent to voicemail. MD Carlos made aware of circumstance. plan of care continues to be followed. bed low, rails elevated x2 (ed
pavelcher) room close to Rn station. heparin and bicarb continue to infuse without issue at the moment.
--- NOTE | 2025-04-09 08:05 | CON.CAR ---
Addendum entered and electronically signed by Naresh Sanchez MD 04/10/25 11:46:
Chart Correction: Please disregard the Attending addendum on 04/09/2025 at 13: 39 as this was entered on the incorrect patient.
Chart should read as follows:
Patient seen and examined in collaboration with FITNESS SUPERVISOR; agree with below.
- 84-year-old female with permanent pacemaker implantation, hypertension, hyperlipidemia, and diabetes admitted with change in mental status and chest tightness; Cardiology was consulted for abnormal troponin. The son was at bedside was able to
help translate.
- Patient admitted with metabolic acidosis, hypotension (84/47 on arrival), elevated D-Dimer (2.0) and NKECHI (cr 1.6).
- Exam: Heart RRR, lungs CTA.
- Echocardiogram ordered; will await results.
- Will likely discontinue heparin after echo.
Addendum entered and electronically signed by Naresh Sanchez MD 04/09/25 13:39:
- Patient seen and examined in collaboration with FITNESS SUPERVISOR; agree with below.
- 84-year-old male with permanent pacemaker implantation, hypertension, hyperlipidemia, and diabetes admitted with elevated heart rate and change in mental status. The daughter was at bedside was able to help translate.
- The patient was found to be in new onset atrial fibrillation on admission; spontaneously converted back to sinus rhythm.
- The patient's daughter forgot to give him his evening dose of metoprolol yesterday.
- Exam: Heart RRR, lungs CTA.
- Recommend starting Eliquis for systemic anticoagulation.
- Patient to be placed under observation status by Hospitalists; likely discharge home tomorrow.
Original Note:
Translation Services
-
Preferred Language: Cantonese
Screen Printer service via: Video
Screen Printer's ID Number: [id number]
Consultation
Consultation Request
Date/Time Consultation Requested: 04/09/25 3:20a
Date/Time Consultation Performed: 04/09/25 7:45a
Requesting Provider: Dr. Escobar
Performing Provider: HILARIA Reveles for Dr. Sanchez
Reason for Consultation: Abnormal troponin, Acidosis
Medical History
-
Chief Complaint: confusion
History of Present Illness:
Mrs. Zuñiga is an 84 yo female with HTN, HLD, MDT PPM, and DM, who was brought in from home by her son for confusion and weakness. According to ER notes, son stated she c/o abdominal pain and intermittent chest tightness recently. She is admitted to
the hospitalist service and we are consulted for abnormal troponin in the setting of acute acidosis, hypotension (84/47 on arrival), elevated D-Dimer (2.0) and NKECHI (cr 1.6). She speaks Cantonese, so the staff interpreter video was utilized but she would
not participate, she did not speak to the staff interpreter or even open her eyes from sleeping. She was not able to provide history, ROS etc, per nursing she removed her tele leads. History was obtained from nursing, hospital notes and patient's son
Fransisco via the phone. He states she c/o abdominal pain at home, but it has now subsided. Chest tightness has occurred intermittently at home this week. He also adds she had a bleeding ulcer in August 2022 when she had her PPM implanted. Her
fireproof door maker is Dr. Amaya at [facility].
Past Medical History
Past Medical History: Other (as above)
Past Surgical History: Cardiac (PPM)
Social History
Tobacco: Non-Smoker
Alcohol: Occasional (rare)
Living: With Family (son )
Family History
Family History: Reviewed & Not Pertinent
Allergies / Home Medications
Allergy/AdvReac Type Severity Reaction Status Date / Time
No Known Allergies Allergy Unverified 04/08/25 18:49
�Medication �Instructions �Recorded �Confirmed �Type
alendronate 70 mg tablet (Fosamax) 70 mg PO SA 04/08/25 04/08/25 History
amlodipine 10 mg tablet 10 mg PO DAILY Blood Pressure 04/08/25 04/08/25 History
glipizide 10 mg tablet, extended 10 mg PO DAILY Diabetes 04/08/25 04/08/25 History
release 24 hr
lisinopril 20 mg tablet 20 mg PO DAILY Blood Pressure 04/08/25 04/08/25 History
metformin 850 mg tablet 850 mg PO BID marylin 04/08/25 04/08/25 History
pantoprazole 40 mg tablet,delayed 40 mg PO DAILY Gastrointestinal 04/08/25 04/08/25 History
release (Protonix) Issue
simvastatin 40 mg tablet (Zocor) 40 mg PO DAILY High Cholesterol 04/08/25 04/08/25 History
Review of Systems
-
Unable to obtain full review of systems at this time due to: Other
History Source: Family (son Fransisco)
All other systems: Negative unless noted
Physical Exam
Vital Signs
Temp Pulse Resp BP Pulse Ox
98 F 84 23 144/64 96
04/09/25 04:00 04/09/25 07:31 04/09/25 07:31 04/09/25 07:32 04/09/25 05:15
Lab Results
04/09/25 04:06
04/09/25 05:50
Troponin I 0.556 ng/ml H* D 04/09/25 04:06
Physical Exam
General: No Apparent Distress and Other (elderly)
HEENT: Normocephalic
Respiratory: Clear and Non Labored Respirations
Cardiac: S1/S2 and Regular Rhythm
Breast: Deferred by me
GI: Soft and Non Distended
Rectal: Deferred by Provider
Musculoskeletal: No Edema
Skin: Warm and Dry
Neuro: Other (sleeping and did not respond to staff interpreter, will squint her eyes to sternal rub. Via phone call, son states she is confused this am.)
Psych: Calm
Impression / Plan
-
Non-ischemic myocardial injury - acute in the setting of acute hypotension, acute leukocytosis, NKECHI, acute acidosis, and elevated d-dimer.
- she does not provide any history/ROS, her son states she described intermittent chest tightness recently.
- cannot exclude NSTEMI, IV Heparin started but with acute decline in hgb, await echo results and repeat hgb.
- trend to peak.
- EKG with LBBB, unknown chronicity.
- check echo.
Change in mental status - acute.
- per hospitalist.
- acidosis noted, leukocytosis, NKECHI, hypotension.
Hypotension - acute.
- improving with IVF, monitor.
- holding outpatient amlodipine and lisinopril.
Acidosis - acute.
- per hospitalist.
NKECHI - acute, unknown baseline.
- monitor.
- holding outpatient amlodipine and lisinopril.
Elevated d-dimer - new, 2.0.
- on IV Heparin.
Confusion - change in mental status at home.
- per hospitalist.
- CT head negative for acute abnormality.
Data Reviewed
-
EKG: Tracing Personally Visualized and interpreted (SR 1st degree AVB, LBBB [address] Scan: Report Reviewed by me (head: no acute abnormality) and Other (abd/pelvis: Mild colonic wall thickening suggestive of mild colitis, age indeterminant moderate anterior compression deformity of the L1 vertebral body, small hiatal hernia.)
Labs: Labs Reviewed by me
[2025-04-09] MEDS: PROTONIX PO (08:12)
[2025-04-09] MEDS: LOW STRENGTH ASPIRIN PO (08:12)
[2025-04-09 08:52] LABS: Glycohemoglobin (HgbA1c) 6.7 % (4.0-5.9)
--- NOTE | 2025-04-09 09:31 | PHA.VAN.IN ---
Assessment
- Assessment
Renal Function: Unknown baseline
Concomitant Antimicrobials: piperacillin/tazobactam
Plan
- Plan
Initial / Loading Dose: 1500mg - 04/09 01:50
Maintenance Regimen: dosing by level
Monitoring: random 04/10 0600
MRSA Screen: Ordered per protocol
Pharmacokinetics Vancomycin I
- -
Patient Age: 84
Patient Sex: Female
Vancomycin Day #: 1
Indication: Pulmonary/Respiratory
Requesting Provider: Dr. Escobar
Pertinent Antimicrobial Allergies:
NKDA
Height / Weight:
Height 5 ft 1 in
Actual Weight 53 kg
Pertinent Past Medical History: DM II
- Vital Signs / Lab Results
Temp Pulse Resp BP Pulse Ox
98 F 84 23 144/64 96
04/09/25 04:00 04/09/25 07:31 04/09/25 07:31 04/09/25 07:32 04/09/25 05:15
Lab Results - Hematology
04/08/25 04/09/25
19:14 04:06
WBC 14.0 H 8.8
Lab Results - Chemistry
04/08/25 04/08/25 04/09/25
19:14 20:01 05:50
BUN 46 H 46 H 40 H
Creatinine 1.6 H 1.6 H 1.1 H
Estimated Creat Clear 20 20 30
Albumin Cancelled 4.6 3.4 L
04/08/25 04/09/25
22:21 02:15
Lactic Acid 1.0 Cancelled
Lab Results - Urine
04/08/25
20:16
Urine Nitrite (Reflex) Negative
Leukocyte Esterase Rfl Negative
Urine WBC (Reflex) 0-2
Ur Squamous Epith Cells 3-5
Urine Bacteria (Reflex) Many A
Microbiology Results
04/08/25 21:57 Influenza Types A & B (SINAN) - Final
Nasal Swab Negative for Influenza A & B, NAAT
Negative results must be combined with clinical observations
and patient history.
Nucleic Acid Amplification test (NAAT)performed on the
[employer] platform.
[2025-04-09 10:04] LABS: Troponin I 1.360 ng/ml
[2025-04-09 11:17] LABS: Hemoglobin 9.5 g/dL (12.0-16.0)
[2025-04-09 11:26] LABS: APTT 102.4 Sec (23.4-35.0)
--- NOTE | 2025-04-09 12:30 | EDCM ---
Reviewed chart and met with pt's son Fransisco bedside in ED. Pt lives with Fransisco in [address] [place], no [place].
Pt speaks Cantonese, per son she does understand some Maori.
Pt is being admitted for Ketoacidosis/sepsis/PNA. she has a history of cardiac disease, has a Pacemaker, HTN, HLD, DM
Pt is independent in ADLs, personal care and ambulation at baseline. No assistive devices.
Confirms prescription coverage.
No hx VN or SNF
PCP: [facility] in [place], [place]
Pharmacy: [facility]
--- NOTE | 2025-04-09 14:02 | W.PN.UPDATE ---
Update Note
Progress Note Update
New onset A-fib with RVR, spontaneously reverted to sinus rhythm
Start Eliquis, stop Hep ggt as per cards if hgb stable
Follow-up repeat BMP�REINA improving
Continue fluids, bicarb okay for now
Metabolic acidosis
Cont IV abx
F/u cultures
Elevated -trop - f/u ECHO; Cards recs
Add synthroid
Speech eval for diet advancement
Acidosis combined due to Reina and most likely starvation ketoacidosis
[2025-04-09] MEDS: SODIUM BICARBONATE IV (15:19)
[2025-04-09 15:33] LABS: Blood Urea Nitrogen 34 mg/dl (7-17); Calcium 8.2 mg/dl (8.4-10.2); Carbon Dioxide 21 mmol/L (22-30); Chloride 106 mmol/L (98-107); Estimated Creatinine Clearance 30 ml/min; Glucose 114 mg/dl (70-99); Potassium 3.8 mmol/L (3.5-5.1); Sodium 135 mmol/L (135-145); eGFR 50.17
--- NOTE | 2025-04-09 15:53 | PTCARENOTE ---
pt refusing skin check. attempted check with MERARY Rasmussen after son at bedside explained to pt what needed to be assessed; pt adamantly refusing.
[2025-04-09 16:08] LABS: Troponin I 1.060 ng/ml
--- NOTE | 2025-04-09 16:17 | PTOTSP ---
Speech Therapy Evaluation:
Pt with acute risk factors of dysphagia with current admission for confusion. HCT negative. CXR with pulmonary edema and/or pneumonitis. Pt without dysphagia/PNA hx. At bedside, oral phase prolonged in the setting of edentulous state. No overt s/sx
of aspiration across trials. WBC WNL and pt on room air.
Recommend:
1. IDDSI 6 (soft and bite sized solids) with softer selections per pt preference and thin liquids
2. Medications as best tolerated
3. Strict aspiration and reflux precautions
4. 1:1 supervision with PO intake
5. CITIZENSHIP INSTRUCTOR to follow to monitor tolerance of diet and determine if further advancements/modifications required
[2025-04-09 17:26] LABS: APTT 59.7 Sec (23.4-35.0)
--- NOTE | 2025-04-09 18:29 | PTCARENOTE ---
end of shift note; pt has perked up compared to the beginning of the shift. pt is no longer aggressive/combative/refusing care. pt is now more calm and acceptant of care. son at bedside reports drastic improvement compared to previous days and
this AM.
--- NOTE | 2025-04-09 22:57 | PTCARENOTE ---
Assumed care of Pt from Ed RN. Pt ambulated from stretcher to bed with asstX1. Pt Son at bed side. Pt AAOx2 Pt able to make needs known. Translation line available when needed. Pt arrived with heparin gtt and IVF. Pt appearing to tolerate well.
Education given die cutter diamond neil. Bed in lowest position alarm on. Call neil within reach.
[2025-04-09 23:42] LABS: Glucose - Point of Care 119 mg/dl (70-99)
--- NOTE | 2025-04-09 23:45 | PTCARENOTE ---
Video washer machine attempted ([id number]). Pt voicing she has trouble hearing. Volume up and attempted again. Pt again saying to washer machine she can not hear. Video ended. Motions, pointing and showing Pt options were used to communicate. Pt saying 'yes' '
no' or shaking head for response. Call neil within reach. Bed in lowest position alarm on.
[2025-04-10] VITALS (13 sets, daily range): BP systolic 123–141; BP diastolic 64–83; BMI 22.3
[2025-04-10 00:21] LABS: APTT 150.6 Sec (23.4-35.0)
[2025-04-10 05:40] LABS: Glucose - Point of Care 124 mg/dl (70-99)
[2025-04-10] MEDS: ZOSYN 50 IV ×4 (06:26→23:15)
[2025-04-10 07:02] LABS: Hematocrit 28.5 % (37.0-47.0); Hemoglobin 9.7 g/dL (12.0-16.0); Mean Corp Hgb Conc. 34.0 g/dL (33.0-37.0); Mean Corpuscular Volume 84.6 fL (81.0-99.0); Platelet Count 171 10^3/uL (130-400); Red Cell Dist. Width 12.8 % (11.5-14.5)
[2025-04-10 07:04] LABS: APTT 82.1 Sec (23.4-35.0)
[2025-04-10 07:24] LABS: ALT (SGPT) 18 U/L (0-35); AST (SGOT) 41 U/L (14-36); Albumin 3.3 g/dl (3.5-5.0); Alkaline Phosphatase 56 U/L (38-126); Blood Urea Nitrogen 21 mg/dl (7-17); Calcium 8.0 mg/dl (8.4-10.2); Carbon Dioxide 28 mmol/L (22-30); Chloride 99 mmol/L (98-107); Estimated Creatinine Clearance 36 ml/min; Glucose 105 mg/dl (70-99); Potassium 3.3 mmol/L (3.5-5.1); Sodium 134 mmol/L (135-145); Total Protein 5.8 g/dl (6.3-8.2); eGFR > 60.00
--- NOTE | 2025-04-10 08:01 | PHA.VAN.FU ---
Vancomycin Assessment / Plan
- Assessment
Renal Function: SCR Decreasing
WBC's are: WNL
In the past 24 hrs, patient has been: Afebrile
Concomitant Antimicrobials: piperacillin/tazobactam
- Assessment - Therapeutic Drug Monitoring
Random Level: 8.6 - drawn ~28.5H after 1500mg loading dose
- Dosing Plan
Adjust Regimen to: Vanc 750mg Q24H - first dose today then 04/11 06
New Regimen Predicts: AUC (589), Peak (35), Trough (16.1)
- Monitoring Plan
No level(s) ordered at this time: follow renal function - may require adjustment if SCR increases
- Follow Up
Pharmacy will continue to follow.
Vancomycin Follow UP
- -
Patient Age: 84
Patient Sex: Female
Vancomycin Day #: 2
Indication: Pulmonary/Respiratory
Requesting Provider: Dr. Escobar
Pertinent Antimicrobial Allergies:
NKDA
Height / Weight:
Height 5 ft 1 in
Actual Weight 53.524 kg
Pertinent Past Medical History: DM II
- Vital Signs / Lab Results
Temp Pulse Resp BP Pulse Ox
98.9 F 91 22 128/73 94
04/10/25 03:31 04/10/25 06:00 04/10/25 06:00 04/10/25 06:00 04/10/25 06:00
Lab Results - Hematology
04/08/25 04/09/25 04/10/25
19:14 04:06 06:37
WBC 14.0 H 8.8 6.8
Lab Results - Chemistry
04/08/25 04/08/25 04/09/25
19:14 20:01 05:50
BUN 46 H 46 H 40 H
Creatinine 1.6 H 1.6 H 1.1 H
Estimated Creat Clear 20 20 30
Albumin Cancelled 4.6 3.4 L
04/09/25 04/10/25
14:33 06:37
BUN 34 H 21 H
Creatinine 1.1 H 0.9
Estimated Creat Clear 30 36
Albumin 3.3 L
04/08/25 04/09/25
22:21 02:15
Lactic Acid 1.0 Cancelled
Microbiology Results
04/08/25 23:24 Blood Culture - Preliminary
Blood/Venous No Growth in 24 hours- Final report to follow
04/08/25 22:21 Blood Culture - Preliminary
Blood/Venous No Growth in 24 hours- Final report to follow
04/09/25 09:55 Nasal Screen MRSA (PCR) - Final
Nose MRSA not detected - performed by PCR methodology.
04/08/25 21:57 Influenza Types A & B (SINAN) - Final
Nasal Swab Negative for Influenza A & B, NAAT
Negative results must be combined with clinical observations
and patient history.
Nucleic Acid Amplification test (NAAT)performed on the
[employer] platform.
Therapeutic Drug Monitoring
Random Vancomycin 8.6 ug/ml 04/10/25 06:37
[2025-04-10] MEDS: PROTONIX 40 MG PO (08:27)
[2025-04-10] MEDS: LOW STRENGTH ASPIRIN 81 MG PO (08:27)
[2025-04-10] MEDS: SODIUM BICARBONATE 1150 MEQ IV (08:28)
[2025-04-10] MEDS: KCL ELIXIR 40 MEQ PO (09:50)
[2025-04-10] MEDS: VENTOLIN NEBULES 2.5 MG INH (11:07)
[2025-04-10 12:26] LABS: Glucose - Point of Care 125 mg/dl (70-99)
[2025-04-10 12:26] LABS: Glucose - Point of Care 155 mg/dl (70-99)
[2025-04-10 13:23] LABS: APTT 74.5 Sec (23.4-35.0)
--- NOTE | 2025-04-10 13:49 | PTCARENOTE ---
Patient out of bed , walking to bathroom with nurse assistance. Language line used for communication however patient pushed away the phone despite several attempts. Nurse spoke to son Fransisco on the phone, he will be coming in today to assist with
communication and education. Patient shaking head 'no' when asked if she has pain. Meals ordered for patient, fair appetite. Heparin drip continues, therapeutic PTT twice.
[2025-04-10 14:11] LABS: Glucose - Point of Care 102 mg/dl (70-99)
--- NOTE | 2025-04-10 14:56 | W.PN.HOSP.TC ---
Today's Communication/Plan
-
cont abx
f/u cultures
monitor bmp
ECHO still pending, f/u cards recs. cont hep ggt, asa for now
mental status appears to be improving
Assessment / Plan
Assessment / Plan
Physical Exam
General: Other (84y F resting comfortably ; much more alert today
HEENT: Other (Dry MM. Neck supple.)
Respiratory: Other (Decreased at bases due to poor effort. No noted W/R/R.)
Cardiac: S1/S2 and Regular Rhythm
GI: Non tender; No evident, focal tenderness appreciated.)
Musculoskeletal: No Clubbing, No Cyanosis and No Edema
Neuro: Awake, Alert and Nonfocal/grossly intact
A/P: Patient is an 84y F with PMH significant for HTN and DM-II who presents to ED for evaluation of one week of increased confusion / hallucinations and now weakness this evening.
Hypotension
-unclear etiology, no urinary symptoms, UA negative; abd exam unremarkable
-Improved s/p abx, fluids, holding antihypertensives
-Remains afebrile
-Cont abx
-F/u cultures
-F/u ECHO - still pending
#Elevated troponin
-unclear etiology, no chest pain
-f/u ECHO
-Trop peaked at 1.36
-Cards suspect is nonischemic mycoardial injury - pending ECHO
-Cont Hep ggt
-ASA
#Anion Gap metabolic Acidosis
-likely related to NKECHI and Starvation Ketoacidosis
-Improving
-stop bicarb ggt
#Hypokalemia
-monitor and replete
NKECHI
-Improving with resusctiation, fluids
- Hold lisinopril / metformin.
- Follow for improvement in renal function with IVFs / resuscitation.
Benign Hypertension
- Hold regimen
DM-II
- Stable. Glucose 89 at home this evening.
- Hold PO hypoglycemic agents acutely.
- Follow glucose and cover with SSI as needed.
Hallucinations
- History seems most c/w new recognition / onset of dementia - though son indicates that change was rather abrupt - suspect 2/2 to acidosis/?infection
- Follow for any improvement in mental status / hallucinations / etc with correction of metabolic disturbances, etc as noted above.
DVT Prophylaxis: On IV Heparin infusion.
Code Status: Full
Total time spent on today's encounter was 52 minutes which included time spent in counseling the patient/family regarding diagnosis and treatment plan as listed above, goals of care, and symptom management. Case was discussed with nursing staff,
specialists, and care coordinators/case management. All labs and imaging personally reviewed by me. Remainder the time spent in detailed review of previous records, lab data, imaging, and other medical provider documentation.
Anticipated Discharge: > 48 hours
Subjective/Interval History
-
Date of Service: April 10, 2025
clinically appears more alert today
Objective Data
-
Labs:
Laboratory Results
04/10/25 04/10/25
06:37 13:02
WBC 6.8
Hgb 9.7 L
Hct 28.5 L
Plt Count 171
APTT 82.1 H 74.5 H
Sodium 134 L
Potassium 3.3 L
Chloride 99
Carbon Dioxide 28
BUN 21 H
Creatinine 0.9
Glucose 105 H
Calcium 8.0 L
Total Bilirubin 0.5
AST 41 H
ALT 18
Alkaline Phosphatase 56
Vital Signs:
Vital Signs
Temp Pulse Resp BP Pulse Ox
98.4 F 95 22 134/80 93
04/10/25 07:55 04/10/25 12:00 04/10/25 12:00 04/10/25 12:00 04/10/25 12:00
I&O
04/09/25 04/10/25 04/11/25
06:59 06:59 06:59
Intake Total 2722.5 / 2722.5 600 / 600
Output Total 1100 / 1100
Balance 1622.5 / 1622.5 600 / 600
Review of Systems
-
History Source: Patient
All other systems: Not reviewed unless documented
Data Reviewed
-
Diagnostic Radiology: Report Reviewed by me
Labs: Labs Reviewed by me
--- NOTE | 2025-04-10 15:39 | W.PN.CD ---
Addendum entered and electronically signed by Naresh Sanchez MD 04/10/25 17:09:
Patient evaluated in collaboration with RETAIL SALES PROFESSIONAL; agree with below.
- The patient refused cardiac examination and echocardiogram today.
- Can discontinue heparin drip; most likely acute nonischemic myocardial injury in the setting of hypotension, leukocytosis, NKECHI, metabolic acidosis, and elevated D-dimer.
- Can continue aspirin.
- No further cardiac recommendations at this time; conservative management.
Original Note:
Today's Communication / Plan
-
Okay to stop heparin from cardiac perspective (relayed to hospitalists since she may need to stay on for other indication such as elevated d-dimer). She declined echo. No further cardiac recommendations at this time.
Impression / Plan
-
84-year-old female with permanent pacemaker implantation, hypertension, hyperlipidemia, and diabetes admitted with change in mental status and chest tightness; Cardiology was consulted for abnormal troponin.
Acute non-ischemic myocardial injury:
-in setting of acute illness with hypotension, leukocytosis, NKECHI, metabolic acidosis, and elevated d-dimer
-peak 1.4. Patient declined echo that was ordered.
-EKG with LBBB, unknown chronicity.
-okay to stop heparin from cardiac perspective, but not sure if she needs to stay on for other cause (elevated d-dimer)- communicated to hospitalist
Change in mental status:
-w/u management per primary
-head CT negative
Hypotension:
-improved with fluids and med hold
NKECHI:
-resolved
Elevated d-dimer - 2.0.
-on IV Heparin
-w/u and management per primary
Patient declined using chef assistant service with me. She waved it away. Nursing tells me they declined for her as well. She did let me listen to heart and lungs- rhythm and rate are regular. II/ systolic murmur. Lungs CTA. She is in no distress and
appears comfortable at the time of my assessment.
Physical Exam
Vital Signs/Labs
Vital Signs
Temp Pulse Resp BP Pulse Ox
98.4 F 95 22 134/80 93
04/10/25 07:55 04/10/25 12:00 04/10/25 12:00 04/10/25 12:00 04/10/25 12:00
04/09/25 04/10/25 04/11/25
06:59 06:59 06:59
Actual Weight 116 lb 13.52 oz 118 lb
04/10/25 06:37
04/10/25 06:37
APTT 74.5 Sec (23.4-35.0) H 04/10/25 13:02
Magnesium 1.7 mg/dl (1.6-2.3) 04/09/25 05:50
Triglycerides 46 mg/dl (10-149) 04/09/25 05:50
LDL Cholesterol, Calc 47 mg/dl 04/09/25 05:50
VLDL Cholesterol, Calc 9 mg/dl (0-30) 04/09/25 05:50
HDL Cholesterol 62 mg/dl 04/09/25 05:50
Free T4 1.86 ng/dl (0.78-2.19) 04/09/25 04:06
LAB Results
04/08/25 04/09/25 04/09/25
22:21 01:00 04:06
Troponin I 0.240 H* 0.283 H* 0.556 H* D
04/09/25 04/09/25
09:31 15:21
Troponin I 1.360 H* D 1.060 H*
Physical Exam
Constitutional: No acute distress
EENT: Anicteric
Cardiovascular: Rhythm & rate is regular and Systolic murmur present (II/)
Respiratory: Respiratory effort normal and Lungs clear to auscul.
GI: Non tender and Normal bowel sounds
Neuro/Psych: Alert
Data Reviewed
-
Date of Service: April 10, 2025
EKG: Other (SR)
Labs: Labs Reviewed by me (trop as noted)
[2025-04-10] MEDS: KCL 40 MEQ PO (16:18)
[2025-04-10 16:59] LABS: Glucose - Point of Care 116 mg/dl (70-99)
[2025-04-10] MEDS: HEPARIN 25000 UNITS/250 ML IV (18:37)
--- NOTE | 2025-04-10 18:46 | PTCARENOTE ---
Son Fransisco is here, patient is answering questions correctly for year, month, location, name, birthday when her sons asks her in her [place] language.
--- NOTE | 2025-04-10 20:28 | PTCARENOTE ---
Assumed care of pt from dayshift RN after change of shift report. pt is non Estonian speaking. family is at bedside. Pt smiling and nodding yes/no. interpolator device at bedside. pt eating small amount of dinner. VSS. HR 85 bpm. hep gtt remains
infusing. next ptt in Am, therapeutic cam. assessment as documented. call light in reach.
[2025-04-10 21:54] LABS: Glucose - Point of Care 167 mg/dl (70-99)
[2025-04-11] VITALS: BP 138/69
[2025-04-11 02:00] VITALS: BP 143/87
[2025-04-11 04:40] VITALS: BMI 22.8
[2025-04-11] MEDS: ZOSYN 50 IV ×2 (05:24→13:06)
[2025-04-11 05:54] LABS: Hematocrit 29.3 % (37.0-47.0); Hemoglobin 10.0 g/dL (12.0-16.0); Mean Corp Hgb Conc. 34.1 g/dL (33.0-37.0); Mean Corpuscular Volume 85.4 fL (81.0-99.0); Platelet Count 171 10^3/uL (130-400); Red Cell Dist. Width 12.6 % (11.5-14.5)
[2025-04-11 06:02] LABS: APTT 76.5 Sec (23.4-35.0)
[2025-04-11 06:24] LABS: ALT (SGPT) 21 U/L (0-35); AST (SGOT) 44 U/L (14-36); Albumin 3.4 g/dl (3.5-5.0); Alkaline Phosphatase 55 U/L (38-126); Blood Urea Nitrogen 13 mg/dl (7-17); Calcium 8.4 mg/dl (8.4-10.2); Carbon Dioxide 27 mmol/L (22-30); Chloride 100 mmol/L (98-107); Estimated Creatinine Clearance 41 ml/min; Glucose 115 mg/dl (70-99); Magnesium 1.8 mg/dl (1.6-2.3); Potassium 3.8 mmol/L (3.5-5.1); Sodium 133 mmol/L (135-145); Total Protein 6.1 g/dl (6.3-8.2); eGFR > 60.00
[2025-04-11] MEDS: NOVOLOG FLEXPEN-LOW RESISTANCE SC (08:43)
[2025-04-11] MEDS: LOW STRENGTH ASPIRIN 81 MG PO (08:44)
[2025-04-11] MEDS: PROTONIX 40 MG PO (08:44)
[2025-04-11 08:54] LABS: Glucose - Point of Care 99 mg/dl (70-99)
--- NOTE | 2025-04-11 09:01 | PTCARENOTE ---
Patient received from shift coordinator. Patient resting comfortably in bed. AAO although language barrier but able to communicate enough, VSS. No events noted overnight. No complaints of pain at this time. Heparin gtt therapeutic at 650 units/hr,
next PTT in AM tomorrow. No testing scheduled at this time. Call neil in reach.
--- NOTE | 2025-04-11 10:11 | W.PN.UPDATE ---
Update Note
Progress Note Update
- Patient initially refused echocardiogram yesterday, but ended up agreeing to it--although not completely cooperative.
- Echocardiogram revealed an LVEF of 60-65% with evidence of HOCM with increased LVOT gradients , EVIE with moderate to severe MR, severe mitral stenosis, and moderate to severe TR (PASP 44 mmHg).
- The patient is a poor candidate for any aggressive measures.
- Recommend no specific medications; with avoid diuretics, given HOCM.
- Conservative management; no further cardiac recommendations.
- Outpatient Cardiology follow-up is not needed as patient is not cooperative and is a poor candidate for any aggressive measures.
[2025-04-11] MEDS: NOVOLOG FLEXPEN-LOW RESISTANCE 1 UNITS SC (13:09)
[2025-04-11 13:13] LABS: Glucose - Point of Care 191 mg/dl (70-99)
--- NOTE | 2025-04-11 13:27 | W.PN.HOSP.TC ---
Addendum entered and electronically signed by Juan Carlos MD 04/25/25 15:39:
cystitis was ruled out
Addendum entered and electronically signed by Juan Carlos MD 04/11/25 17:33:
[id number]
Original Note:
Today's Communication/Plan
-
Avoid Diuretics
Stop ACEI; Can hold CCB for now - can restart outpatient depending on BP
can provide abx course
ASA
F/u PCP, Cards outpt
Assessment / Plan
Assessment / Plan
Physical Exam
General: Other (84y F resting comfortably ; much more alert today
HEENT: Other (Dry MM. Neck supple.)
Respiratory: Other (Decreased at bases due to poor effort. No noted W/R/R.)
Cardiac: S1/S2 and Regular Rhythm
GI: Non tender; No evident, focal tenderness appreciated.)
Musculoskeletal: No Clubbing, No Cyanosis and No Edema
Neuro: Awake, Alert and Nonfocal/grossly intact
A/P: Patient is an 84y F with PMH significant for HTN and DM-II who presents to ED for evaluation of one week of increased confusion / hallucinations and now weakness this evening.
Hypotension
-unclear etiology, no urinary symptoms, UA negative; abd exam unremarkable; Possibly 2/2 to HOCM
-Improved s/p abx, fluids, holding antihypertensives - continue to hold with HOCM and monitor
-Remains afebrile
-Cont abx - can provide Augmentin to complete 7 day abx course total
-F/u cultures - NGTD
#Elevated troponin
-unclear etiology, no chest pain; likely non ischemic myocardial injury; unlikely PE - not tachycardic - BPs improved on its own with ECHO already showing rationale for BP drop
no wall motion abnormalitis
-Trop peaked at 1.36
-Cards suspect is nonischemic mycoardial injury
-can stop hep ggt
-LE doppler negative for DVT
-Start ASA
#HOCM
#Severe MR and TR
-No cardiac interventions as per Cards
-Avoid Lasix
-Hold on Amlodipine for now; Stop ACEI as do not want to reduce afterload - may make HOCM symptoms worse
#Anion Gap metabolic Acidosis
-likely related to NKECHI and Starvation Ketoacidosis
-Resolved
-S/p bicarb ggt
#Hyponatremia
-f/u outpt
#Hypokalemia
-monitor and replete
NKECHI
-Resolved
- Hold lisinopril
-Resume metformin.
- Follow for improvement in renal function with IVFs / resuscitation.
Benign Hypertension
- Hold regimen - f/u outpt
DM-II
- Stable. Glucose 89 at home this evening.
- Hold PO hypoglycemic agents acutely.
- Follow glucose and cover with SSI as needed.
-Resume outpatient
Hallucinations
- History seems most c/w new recognition / onset of dementia - though son indicates that change was rather abrupt - suspect 2/2 to acidosis/?infection
- Improving
-CT imaging unremarkable
-If mental status does not improve further(Albeit improved decent amount as per Son)- will need further work up
Code Status: Full
More than 30 minutes spent in discharge including
Final examination of the patient
Summarizing hospital stay
Instructions for continuing care to all relevant caregivers
Preparation of discharge records, prescriptions, and referral forms
Total time spent (in minutes): 36
Anticipated Discharge: Today
Subjective/Interval History
-
Date of Service: April 11, 2025
no acute events; ambulating today
Objective Data
-
Labs:
Laboratory Results
04/11/25
05:36
WBC 6.7
Hgb 10.0 L
Hct 29.3 L
Plt Count 171
APTT 76.5 H
Sodium 133 L
Potassium 3.8
Chloride 100
Carbon Dioxide 27
BUN 13
Creatinine 0.8
Glucose 115 H
Calcium 8.4
Total Bilirubin 0.7
AST 44 H
ALT 21
Alkaline Phosphatase 55
Vital Signs:
Vital Signs
Temp Pulse Resp BP Pulse Ox
98.1 F 85 20 143/87 91
04/11/25 12:56 04/11/25 04:00 04/11/25 04:00 04/11/25 02:00 04/11/25 02:00
I&O
04/10/25 04/11/25 04/12/25
06:59 06:59 06:59
Intake Total 2722.5 / 2722.5 600 / 600
Output Total 1100 / 1100
Balance 1622.5 / 1622.5 600 / 600
Review of Systems
-
History Source: Patient
All other systems: Not reviewed unless documented
Data Reviewed
-
Diagnostic Radiology: Report Reviewed by me
Labs: Labs Reviewed by me
--- NOTE | 2025-04-11 13:40 | W.DS.TRANS ---
DC Summary - Emu Farmer
-
Discharge Instructions:
Discharge Diagnosis/Procedures Hypotension
hypertrophic obstructive cardiomyopathy (HOCM)
Severely dilated left atrium
Dense mitral annular calcification (MAC) with
restricted posterior leaflet with resultant
severe mitral stenosis, mean gradient is 20 mmHg
. Systolic anterior motion (EVIE) of the anterior
leaflet of the mitral valve secondary to HOCM
with resultant moderate to severe mitral
regurgitation.
Moderate to severe, eccentric tricuspid
regurgitation. Estimated pulmonary artery
pressure of 44 mmHg assuming a right atrial
pressure of 3 mmHg
Acute Kidney Injury
Elevated Troponin
Diet Low Cholesterol,Low Fiber
Activity As tolerated
Blood Work cbc and bmp in 5-7 days
Instructions:
Stand-Alone Forms:
Changes to Home Medications: Yes
Discharge Medications:
DC Medications w/original date entered in [facility]
alendronate 70 mg tablet (Fosamax) 70 mg PO SA Osteoporosis 04/08/25
glipizide 10 mg tablet, extended release 24 hr 10 mg PO DAILY Diabetes 04/08/25
Held on 04/11/25. Instructions: Resume on 04/18/25. until cleared by PCP - Hgba1c 6.7
metformin 850 mg tablet 850 mg PO BID Diabetes 04/08/25
pantoprazole 40 mg tablet,delayed release (Protonix) 40 mg PO DAILY Gastrointestinal Issue 04/08/25
simvastatin 40 mg tablet (Zocor) 40 mg PO DAILY High Cholesterol 04/08/25
amoxicillin 875 mg-potassium clavulanate 125 mg tablet 1 tab PO Q12H 5 days #10 tabs 04/11/25
aspirin 81 mg chewable tablet 81 mg PO DAILY 30 days #30 tabs 04/11/25
Home Medication Changes
amoxicillin 875 mg-potassium clavulanate 125 mg tablet 1 tab PO Q12H 5 days #10 tabs 04/11/25
aspirin 81 mg chewable tablet 81 mg PO DAILY 30 days #30 tabs 04/11/25
Pending Results: No
[2025-04-11 13:43] VITALS: BP 143/78; PULSE 80; O2SAT 96
[2025-04-11 14:00] VITALS: BP 116/69
[2025-04-11 16:00] VITALS: BP 126/75
--- NOTE | 2025-04-11 16:18 | CM ---
F/U: Patient discharging no needs and refused IMM. PLAN: Home No Needs.
--- NOTE | 2025-04-11 17:00 | W.PN.UPDATE ---
Update Note
Progress Note Update
- Spoke to son and updated him on patient's echocardiogram results. He mentioned that the patient actually has a Software Requirements Engineer that she sees (Dr. Amaya), and it is recommended that she follow-up with him.
--- NOTE | 2025-04-11 17:47 | PTCARENOTE ---
Patient discharged to home. Discharge instructions reviewed with patients son, all questions answered. Patient left with all known belongings via volunteer escort to main lobby in wheel chair. Patient left with son.
--- NOTE | 2025-04-12 08:26 | PN.CDI ---
CDI
- -
CDI:
Physician Documentation Request
Admit Date: 04/09/25 03:16
Dear Doctor Terrance,
ED record states 'CT scan abdomen/pelvis reveals urinary bladder wall thickening suspicious for possible cystitis as well as evidence of mild colitis.... Patient given broad-spectrum antibiotics vancomycin/Zosyn in ED '
Please clarify the following:
____ - cystitis was present on admission
____ - cystitis was ruled out
____ - Other
Use of terms such as suspected, likely, concern for, or probable (associated with a specific diagnosis that is being evaluated, monitored, or treated as if it exists) are acceptable and can be coded in the inpatient setting, when documented at the
time of discharge.
Thank you,
Sophia Mcmanus RN, BSN
CDI Specialist
tiger text
Please use your independent medical judgment in providing your response.
--- NOTE | 2025-04-12 08:31 | PN.CDI ---
CDI
- -
CDI:
Physician Documentation Request
Admit Date: 04/09/25 03:16
Dear Doctor Terrance,
ED record states 'CT scan abdomen/pelvis reveals urinary bladder wall thickening suspicious for possible cystitis as well as evidence of mild colitis.... Patient given broad-spectrum antibiotics vancomycin/Zosyn in ED '
Zosyn was continued during hospitalization. amoxicillin-pot clavulanate prescribed as outpatient
Please clarify the following:
____ - cystitis was present on admission
____ - cystitis was ruled out
____ - Other
Use of terms such as suspected, likely, concern for, or probable (associated with a specific diagnosis that is being evaluated, monitored, or treated as if it exists) are acceptable and can be coded in the inpatient setting, when documented at the
time of discharge.
Thank you,
Sophia Mcmanus RN, BSN
CDI Specialist
tiger text
Please use your independent medical judgment in providing your response.
== END 2025-04-11 17:14 | disposition home or self-care (01) | DRG 315 ==
LOC: IMU 03:16
PROVIDERS: Nurse Practitioner; Physician Assistant; ADMITTING PHYSICIAN Hospitalist; ATTENDING PHYSICIAN Internal Medicine; EMERGENCY PHYSICIAN Emergency Medicine; OTHER PHYSICIAN Internal Medicine
DX: I42.1 Obstructive hypertrophic cardiomyopathy (principal); E87.20 Acidosis, unspecified; N17.9 Acute kidney failure, unspecified; F03.92 Unspecified dementia, unspecified severity, with psychotic disturbance; E87.29 Other acidosis; I5A Non-ischemic myocardial injury (non-traumatic); E11.9 Type 2 diabetes mellitus without complications; I10 Essential (primary) hypertension; I95.9 Hypotension, unspecified; E87.6 Hypokalemia; K21.9 Gastro-esophageal reflux disease without esophagitis; Z79.82 Long term (current) use of aspirin; Z79.83 Long term (current) use of bisphosphonates; Z79.84 Long term (current) use of oral hypoglycemic drugs; Z79.899 Other long term (current) drug therapy
CPT/HCPCS: 70450; 71046; 74177; 80048; 80053; 80061; 80202; 81003; 81015; 82010; 82248; 82805; 82962; 83036; 83605; 83690; 83735; 84100; 84439; 84443; 84484; 85018; 85025; 85027; 85379; 85730; 87040; 87086; 87502; 87641; 87811; 92526; 92610; 93005; 93306; 93970; 94640; 97162; Q9967